=== PATIENT | male | born 1960 | race Caucasian/White ===

== ENCOUNTER 2018-07-28 16:15 | Emergency (ER) | payer MEDICAID ==
[~2018-07-28] VITALS: Ht 170.2 cm; Wt 81.8 kg
[~2018-07-28 16:15] MED LIST: AMLO5TAB4 PO; ASPI81TA87 PO; ATOR80TA PO; TICA90TA PO
[2018-07-28 16:33] LABS: GLUCOSE,POINT OF CARE 459 MG/DL (70-110)
[2018-07-28 17:04] LABS: BASOPHILS % (AUTO) 0.8 % (0.0-2.0); EOSINOPHILS % (AUTO) 0.5 % (1.0-6.0); HEMATOCRIT 47.2 % (41-53); HEMOGLOBIN 16.6 g/dL (13.5-17.5); LYMPHOCYTES # (AUTO) 1.4 K/uL (1.0-4.8); LYMPHOCYTES % (AUTO) 14.2 % (22.0-44.0); MEAN CORPUSCULAR HEMOGLOBIN 31.4 pg (26.0-34.0); MEAN CORPUSCULAR HGB CONC 35.2 G/dL (31.0-37.0); MEAN CORPUSCULAR VOLUME 89 fL (80-100); MONOCYTES # (AUTO) 0.7 K/uL (0.1-1.0); MONOCYTES % (AUTO) 7.4 % (2.0-9.0); NEUTROPHILS # (AUTO) 7.4 K/uL (1.8-7.7); NEUTROPHILS % (AUTO) 77.1 % (40.0-70.0); PLATELET COUNT (AUTO) 245 K/uL (150-450); RED BLOOD CELL COUNT(AUTO) 5.28 MIL/uL (4.50-5.90)
[2018-07-28 17:19] LABS: ALBUMIN 3.7 g/dL (3.4-5.0); BILIRUBIN,TOTAL 0.6 mg/dL (0.1-1.0); CALCIUM, TOTAL 9.8 mg/dL (8.8-10.5); POTASSIUM 5.2 mmol/L (3.5-5.1); TOTAL PROTEIN, SERUM 7.5 g/dL (6.4-8.2)
[2018-07-28] MEDS ORDERED: SODIUM CHLORIDE 0.9% 1,000 ML IV ONE ×2 (19:45→21:30)
[2018-07-28] MEDS ORDERED: ONDANSETRON HCL 4 MG/2 ML VIAL IVP ONE (19:45)
[2018-07-28] MEDS ORDERED: INSULIN REGULAR, HUMAN 100 UNITS/ML IVP ONE ×2 (19:45→20:15)
[2018-07-28] MEDS ORDERED: NITROGLYCERIN 2% (1 GM=INCH) PACKET TP ONE (19:45)
[2018-07-28] MEDS ORDERED: ASPIRIN 325 MG TABLET PO ONE (19:45)
[2018-07-28] MEDS ORDERED: HydrALAZINE HCL 20 MG/ML VIAL IVP ONE ×2 (20:00→20:45)
[2018-07-28] MEDS ORDERED: ACETAMINOPHEN 325 MG TABLET PO PRN (20:00)
[2018-07-28] MEDS ORDERED: HEPARIN SODIUM 25000 UNITS/D5W 250 ML IV SCH (20:00)
[2018-07-28] MEDS ORDERED: HEPARIN SODIUM 25000 UNITS/D5W 250 ML IV ONE (20:00)
[2018-07-28] MEDS ORDERED: ONDANSETRON HCL 4 MG/2 ML VIAL IVP PRN (20:00)
[2018-07-28] MEDS ORDERED: HEPARIN SODIUM,PORCINE 5,000 UNITS/ML VIAL IVP ONE (20:00)
[2018-07-28] MEDS ORDERED: TICAGRELOR 90 MG TABLET PO ONE (20:00)
[2018-07-28] MEDS ORDERED: 0.9% SODIUM CHLORIDE 10 ML SYRINGE IVP PRN (20:00)
[2018-07-28 20:25] LABS: B-TYPE NATRIURETIC PEPTIDE 32 pg/mL (0-100)
[2018-07-28 20:33] LABS: GLUCOSE,POINT OF CARE 386 MG/DL (70-110)
[2018-07-28 20:43] LABS: ACETONE,BLOOD NEGATIVE (NEGATIVE)
[2018-07-28] MEDS ORDERED: METOPROLOL TARTRATE 5 MG/5 ML VIAL IVP ONE (21:15)
[2018-07-28] MEDS ORDERED: NITROGLYCERIN 50 MG/D5% WATER 250 ML IV PRN (21:15)
[2018-07-28 22:11] VITALS: BP 154/74
[2018-07-29 10:58] LABS: GLUCOSE,POINT OF CARE 320 MG/DL (70-110)
== END 2018-07-28 22:21 | disposition short-term general hospital (02) ==
LOC: EMS 16:16 → ICU 20:08 → UNDOADMIN 20:08 → EMS 22:21
DX: I21.9 Acute myocardial infarction, unspecified (principal); E11.65 Type 2 diabetes mellitus with hyperglycemia; E78.00 Pure hypercholesterolemia, unspecified; I10 Essential (primary) hypertension; I25.2 Old myocardial infarction; Z79.899 Other long term (current) drug therapy; Z79.82 Long term (current) use of aspirin
CPT/HCPCS: 36415; 71045; 80053; 82009; 82962; 83880; 84484; 85025; 85610; 85730; 93005; 96365; 96375; 96376; 99291; 99292; J0360; J1644 ×2; J1815; J2405; J3490 ×2; J7030

== ENCOUNTER 2023-09-18 09:19 | Emergency (ER) | payer MEDICAID ==
[~2023-09-18] VITALS: Ht 170.2 cm; Wt 75.0 kg
[2023-09-18 09:24] VITALS: TEMP 98.7
[2023-09-18] MEDS: CEPHALEXIN MONOHYDRATE 500 MG CAPSULE PO ONE (13:03)
[2023-09-18] MEDS: SULFAMETHOX/TRIMETH DS 800-160 MG/TABLET PO ONE (13:03)
[2023-09-18] MEDS ORDERED: SULF-261 PO (13:46)
[2023-09-18] MEDS ORDERED: CEPH-558 PO (13:46)
[2023-09-18 13:59] VITALS: BP 172/82; PULSE 66; RESP 18
== END 2023-09-18 14:25 | disposition home or self-care (01) ==
LOC: EMS 09:19
DX: L08.9 Local infection of the skin and subcutaneous tissue, unspecified (principal); E11.9 Type 2 diabetes mellitus without complications; E78.00 Pure hypercholesterolemia, unspecified; I10 Essential (primary) hypertension
CPT/HCPCS: 82962; 99283